=== PATIENT | male | born 2000 | race Native Hawaiian/Other Pacific Islander ===

== ENCOUNTER 2018-03-27 09:48 | Emergency (ER) | payer OTHER ==
[~2018-03-27] VITALS: Ht 180.3 cm; Wt 83.9 kg
[2018-03-27 09:54] VITALS: TEMP 98.6
[2018-03-27 10:45] VITALS: BP 117/55
== END 2018-03-27 10:45 | disposition home or self-care (01) ==
LOC: ED 09:48
DX: S61.532A Puncture wound without foreign body of left wrist, initial encounter (principal)
CPT/HCPCS: 90471; 96372; 99283; J0696; J1885; J7040

== ENCOUNTER 2021-07-31 18:20 | Emergency (ER) | payer OTHER ==
[~2021-07-31] VITALS: Ht 180.3 cm; Wt 88.5 kg
[2021-07-31 19:53] VITALS: BP 118/72; TEMP 98.3
== END 2021-07-31 19:53 | disposition home or self-care (01) ==
LOC: ED 18:20
PROC: 0HQLXZZ Repair Left Lower Leg Skin, External Approach (ICD-10-PCS; principal; 2021-07-31)
DX: S91.312A Laceration without foreign body, left foot, initial encounter (principal); W22.8XXA Striking against or struck by other objects, initial encounter; Y93.89 Activity, other specified; Y92.89 Other specified places as the place of occurrence of the external cause
CPT/HCPCS: 90471; 90715; 99283

== ENCOUNTER 2021-12-04 14:17 | Emergency (ER) | payer OTHER ==
[~2021-12-04] VITALS: Ht 180.3 cm; Wt 88.5 kg
[2021-12-04 14:25] VITALS: BP 134/60; TEMP 98.2
== END 2021-12-04 16:28 | disposition home or self-care (01) ==
LOC: ED 14:17
PROC: 0HQGXZZ Repair Left Hand Skin, External Approach (ICD-10-PCS; principal; 2021-12-04)
DX: S61.211A Laceration without foreign body of left index finger without damage to nail, initial encounter (principal); W23.0XXA Caught, crushed, jammed, or pinched between moving objects, initial encounter; Y92.89 Other specified places as the place of occurrence of the external cause
CPT/HCPCS: 96372; 99283; J1885